=== PATIENT | female | born 1950 | race Caucasian/White ===

== ENCOUNTER → 2018-11-06 | Outpatient (CLI) | payer MEDICARE, OTHER ==
[~2018-11-06] MED LIST: ASPI81EC PO; BETA1 PO; CALGLU500 PO; CAND16 PO; CEFD300 PO; Calcium Glucon500 MG PO; FLAX PO; HYDCHL12.5 PO; LISI5 PO; LOSA25 PO; LOSA50 PO; METF500 PO; MULVITMIND PO; Percocet 5-3251 EACH PO; Prednisone20 MG PO; ROSU10TA PO
== END | disposition home or self-care (01) ==
LOC: PLD 08:47 → LAB SHORT 08:47
DX: D48.5 Neoplasm of uncertain behavior of skin (principal)
CPT/HCPCS: 88305

== ENCOUNTER → 2020-06-09 | Outpatient (CLI) | payer MEDICARE, OTHER | LOC: LAB SHORT 14:54 → LAB 14:54 | DX: C44.722 Squamous cell carcinoma of skin of right lower limb, including hip (principal) | CPT/HCPCS: 88305 ==

== ENCOUNTER → 2021-04-19 | Outpatient (CLI) | payer MEDICARE, OTHER | LOC: LAB 12:26 → LAB SHORT 12:26 | DX: D48.5 Neoplasm of uncertain behavior of skin (principal); L57.0 Actinic keratosis | CPT/HCPCS: 88305 ==

== ENCOUNTER → 2021-09-21 | Outpatient (CLI) | payer MEDICARE, OTHER | END | disposition home or self-care (01) | LOC: LAB SHORT 12:09 | DX: R30.9 Painful micturition, unspecified (principal) | CPT/HCPCS: 87077; 87086; 87186 ==

== ENCOUNTER → 2024-04-13 | Outpatient (CLI) | payer MEDICARE, OTHER | LOC: LAB SHORT 12:01 → LAB 12:01 | DX: R30.0 Dysuria (principal) | CPT/HCPCS: 87077; 87086; 87186 ==

== ENCOUNTER 2025-06-06 20:49 | Inpatient (IN) | payer OTHER, MEDICARE ==
[~2025-06-06] VITALS: Ht 152.4 cm; Wt 54.3 kg
[2025-06-06] MEDS ORDERED: CeFAZolin Sodium 2,000 MG in NS 100 ML IV ONE (21:20)
[2025-06-06] MEDS ORDERED: HYDROmorphone HCl/Pf 1MG SYR IV ONE (21:25)
[2025-06-06] MEDS ORDERED: Diazepam 5 MG / ML 2ML SYR IV ONE (22:10)
[2025-06-06] MEDS ORDERED: FentaNYL Citrate 50 MCG/ML 2 ML Injection IV ONE ×2 (22:35→23:00)
[2025-06-06 22:38] LABS: BASOPHILS ABSOLUTE AUTO 0.06 K/mm3 (0.00-0.23); BASOPHILS PERCENT AUTO 1 % (0-2); EOSINOPHILS ABSOLUTE AUTO 0.00 K/mm3 (0.00-0.68); EOSINOPHILS PERCENT AUTO 0 % (0-6); Hematocrit 36.3 % (33.0-51.0); Hemoglobin 12.5 g/dL (11.5-16.0); IMMATURE GRAN ABSOLUTE AUTO 0.05 K/mm3 (0.00-0.10); IMMATURE GRAN PERCENT AUTO 0 % (0-1); LYMPHOCYTES ABSOLUTE AUTO 1.17 K/mm3 (0.84-5.20); LYMPHOCYTES PERCENT AUTO 9 % (21-46); MONOCYTES ABSOLUTE AUTO 0.65 K/mm3 (0.16-1.47); MONOCYTES PERCENT AUTO 5 % (4-13); Mean Corpuscular HGB Conc 34.4 g/dL (31.5-36.5); Mean Corpuscular Volume 104 fL (80-100); NEUTROPHILS ABSOLUTE AUTO 10.84 K/mm3 (1.96-9.15); NEUTROPHILS PERCENT AUTO 85 % (41-73); NRBC ABSOLUTE 0.00 K/mm3 (0.00-0.02); NRBC Auto 0.0 /100 WBC (0.0-0.2); Platelet Count 265 K/mm3 (150-400); RDW Coefficient Variation 12.7 % (11.7-14.2); RDW Standard Deviation 49.0 fL (35.1-46.3)
[2025-06-06 22:44] LABS: Alanine Aminotransfer (ALT/SGP 17.0 U/L (12-78); Albumin, Blood 3.3 g/dL (3.4-5.0); Albumin/Globulin Ratio 1.1 (0.8-1.8); Anion Gap 15.0 mmol/L (3-11); Aspartate Aminotrans (AST/SGOT 16.0 U/L (12-37); Bilirubin, Total 0.3 mg/dL (0.1-1.0); Blood Urea Nitrogen 12.0 mg/dL (8-24); CO2, Blood 20.0 mmol/L (21-32); Calcium, Blood 8.7 mg/dL (8.5-10.1); Chloride, Blood 102.0 mmol/L (98-108); Creatinine, Blood 0.57 mg/dL (0.40-1.00); Globulin, Blood 3.1 g/dL (2.2-4.0); Glucose, Blood 98.0 mg/dL (70-99); Potassium, Blood 3.6 mmol/L (3.5-5.5); Sodium, Blood 133.0 mmol/L (136-145); Total Protein, Blood 6.4 g/dL (6.4-8.2)
[2025-06-06 22:53] LABS: Prothrombin Time Results 9.8 Sec (9.7-11.5)
[2025-06-06] MEDS ORDERED: FLU VACC TS2025(65UP)/MF59C/PF 45 MCG/0.5 ML SYRINGE IM SCH (22:55)
[2025-06-06] MEDS ORDERED: HYDROmorphone HCl/Pf 1MG SYR IV PRN (22:55)
[2025-06-06] MEDS ORDERED: Naloxone HCl 0.4MG / ML 1ML Vial IV PRN (23:00)
[2025-06-06] MEDS ORDERED: Ondansetron HCl 2 MG / ML 2ML Vial IV PRN (23:00)
[2025-06-07] VITALS (12 sets, daily range): BP systolic 113–165; BP diastolic 76–97
--- NOTE | 2025-06-07 00:05 | NUR ---
ARRIVAL NOTE PT ARRIVED STABLE FROM ER VIA GURNEY WITH A L HUMERUS FX. SPLINT TO L ARM NOTED. SENSATION TO L ARM INTACT, RADIAL PULSE PRESENT, CAP REFILL < 3 SECONDS. PT TRANSFERRED TO HOSPITAL BED AND ORIENTED TO ROOM.
[2025-06-07] MEDS ORDERED: EUTHYROX50 MCG PO (01:11)
[2025-06-07] MEDS ORDERED: ATOR10 PO (01:12)
[2025-06-07] MEDS ORDERED: One Daily Wome0.4 MG PO (01:13)
[2025-06-07] MEDS ORDERED: [UNRECOGNIZED DRUG - OTHER] PO (01:13)
[2025-06-07] MEDS ORDERED: FISH OIL 1,0001 EA10 PO (01:14)
[2025-06-07 05:43] LABS: BASOPHILS ABSOLUTE AUTO 0.04 K/mm3 (0.00-0.23); BASOPHILS PERCENT AUTO 0 % (0-2); EOSINOPHILS ABSOLUTE AUTO 0.00 K/mm3 (0.00-0.68); EOSINOPHILS PERCENT AUTO 0 % (0-6); Hematocrit 36.1 % (33.0-51.0); Hemoglobin 12.3 g/dL (11.5-16.0); IMMATURE GRAN ABSOLUTE AUTO 0.03 K/mm3 (0.00-0.10); IMMATURE GRAN PERCENT AUTO 0 % (0-1); LYMPHOCYTES ABSOLUTE AUTO 1.60 K/mm3 (0.84-5.20); LYMPHOCYTES PERCENT AUTO 17 % (21-46); MONOCYTES ABSOLUTE AUTO 0.80 K/mm3 (0.16-1.47); MONOCYTES PERCENT AUTO 8 % (4-13); Mean Corpuscular HGB Conc 34.1 g/dL (31.5-36.5); Mean Corpuscular Volume 104 fL (80-100); NEUTROPHILS ABSOLUTE AUTO 7.06 K/mm3 (1.96-9.15); NEUTROPHILS PERCENT AUTO 74 % (41-73); NRBC ABSOLUTE 0.00 K/mm3 (0.00-0.02); NRBC Auto 0.0 /100 WBC (0.0-0.2); Platelet Count 248 K/mm3 (150-400); RDW Coefficient Variation 13.0 % (11.7-14.2); RDW Standard Deviation 49.2 fL (35.1-46.3)
--- NOTE | 2025-06-07 06:34 | NUR ---
SHIFT SUMMARY A&O X4. PAIN MANAGED WELL PER EMAR. SPLINT AND BHARAT WRAP TO L ARM. PT NPO @ OOO5 IN ANTICIPATION OF SURGERY TODAY. HCG BATH COMPLETED. CONTINUOUS PULSE OX IN PLACE SPO2 95% ON 2L O2 VIA NC. PT RESTING IN BED, RESPIRATIONS EVEN AND UNLABORED. CALL LIGHT WITHIN REACH.
[2025-06-07 06:37] LABS: Alanine Aminotransfer (ALT/SGP 18.0 U/L (12-78); Albumin, Blood 3.1 g/dL (3.4-5.0); Albumin/Globulin Ratio 1.0 (0.8-1.8); Anion Gap 14.0 mmol/L (3-11); Aspartate Aminotrans (AST/SGOT 17.0 U/L (12-37); Bilirubin, Total 0.5 mg/dL (0.1-1.0); Blood Urea Nitrogen 9.0 mg/dL (8-24); CO2, Blood 20.0 mmol/L (21-32); Calcium, Blood 8.6 mg/dL (8.5-10.1); Chloride, Blood 105.0 mmol/L (98-108); Creatinine, Blood 0.55 mg/dL (0.40-1.00); Globulin, Blood 3.2 g/dL (2.2-4.0); Glucose, Blood 93.0 mg/dL (70-99); Magnesium, Blood 1.6 mg/dL (1.6-2.4); Potassium, Blood 3.8 mmol/L (3.5-5.5); Sodium, Blood 135.0 mmol/L (136-145); Thyroid Stimulating Hormone 1.12 uIU/mL (0.360-4.800); Total Protein, Blood 6.3 g/dL (6.4-8.2)
[2025-06-07] MEDS ORDERED: Bupivacaine 0.5% W/EPI 1:200000 SDV 30 ML Vial ONE (07:48)
[2025-06-07] MEDS ORDERED: CeFAZolin Sodium 2,000 MG in NS 100 ML IV SCH (08:00)
[2025-06-07] MEDS ORDERED: Ondansetron HCl 2 MG / ML 2ML Vial ONE (08:02)
[2025-06-07] MEDS ORDERED: Dexamethasone Sodium Phosphate 4 MG/ML 5ML VIAL ONE (08:02)
[2025-06-07] MEDS ORDERED: Metoclopramide HCl 5MG / ML 2ML Vial ONE (08:02)
[2025-06-07] MEDS ORDERED: FentaNYL Citrate 50 MCG/ML 2 ML Injection ONE ×3 (08:11→09:55)
[2025-06-07] MEDS ORDERED: CeFAZolin Sodium 1000 mg Vial ONE ×2 (08:21→08:24)
[2025-06-07] MEDS ORDERED: Lactobacil 2-S.Thermo-Bifido 1 1 Cap PO SCH (09:00)
[2025-06-07] MEDS ORDERED: Ketorolac Tromethamine 30mg Vial ONE (09:55)
[2025-06-07] MEDS ORDERED: Sugammadex Sodium 200 MG/2ML SDV (100 MG/ML) ONE (10:33)
[2025-06-07] MEDS ORDERED: Albuterol 2.5 MG/3 ML VIAL INH PRN (10:35)
[2025-06-07] MEDS ORDERED: HYDROmorphone HCl/Pf 1MG SYR IV PRN ×2 (10:35)
[2025-06-07] MEDS ORDERED: FentaNYL Citrate 50 MCG/ML 2 ML Injection IV PRN ×2 (10:35→10:40)
[2025-06-07] MEDS ORDERED: Ondansetron HCl 2 MG / ML 2ML Vial IV PRN (10:40)
--- NOTE | 2025-06-07 17:20 | NUR ---
ARRIVAL TO SURG FLOOR TO FLOOR VIA HOSP BED. A&O x4, VSS. L SHOULDER w/AQUACEL & SLING. STATES NO PAIN AT THIS TIME. AWAITING POST OP VOID. SNACKS & DRINKS GIVEN. RESTING IN BED w/CALL LIGHT WITHIN REACH.
--- NOTE | 2025-06-07 18:37 | NUR ---
SHIFT SUMMARY S/P MERLYNE ORIF. A&O x4, VSS. L ARM w/AQUACEL & SLING - C/D/I. PAIN CONTROLLED WELL PER EMAR. VOIDED SUCCESSFULLY. TOLERATING FLUDIS & FOOD WELL. SBA TO BATHROOM FOR VOID. RESTING IN BED w/CALL LIGHT WITHIN REACH.
[2025-06-08 01:17] VITALS: BP 116/67
[2025-06-08 04:30] VITALS: BP 105/65
[2025-06-08 04:47] LABS: BASOPHILS ABSOLUTE AUTO 0.02 K/mm3 (0.00-0.23); BASOPHILS PERCENT AUTO 0 % (0-2); EOSINOPHILS ABSOLUTE AUTO 0.00 K/mm3 (0.00-0.68); EOSINOPHILS PERCENT AUTO 0 % (0-6); Hematocrit 26.9 % (33.0-51.0); Hemoglobin 9.3 g/dL (11.5-16.0); IMMATURE GRAN ABSOLUTE AUTO 0.03 K/mm3 (0.00-0.10); IMMATURE GRAN PERCENT AUTO 0 % (0-1); LYMPHOCYTES ABSOLUTE AUTO 1.01 K/mm3 (0.84-5.20); LYMPHOCYTES PERCENT AUTO 14 % (21-46); MONOCYTES ABSOLUTE AUTO 0.73 K/mm3 (0.16-1.47); MONOCYTES PERCENT AUTO 10 % (4-13); Mean Corpuscular HGB Conc 34.6 g/dL (31.5-36.5); Mean Corpuscular Volume 103 fL (80-100); NEUTROPHILS ABSOLUTE AUTO 5.71 K/mm3 (1.96-9.15); NEUTROPHILS PERCENT AUTO 76 % (41-73); NRBC ABSOLUTE 0.00 K/mm3 (0.00-0.02); NRBC Auto 0.0 /100 WBC (0.0-0.2); Platelet Count 219 K/mm3 (150-400); RDW Coefficient Variation 13.0 % (11.7-14.2); RDW Standard Deviation 48.9 fL (35.1-46.3)
[2025-06-08 05:08] LABS: Anion Gap 10.0 mmol/L (3-11); Blood Urea Nitrogen 13.0 mg/dL (8-24); CO2, Blood 24.0 mmol/L (21-32); Calcium, Blood 7.9 mg/dL (8.5-10.1); Chloride, Blood 104.0 mmol/L (98-108); Creatinine, Blood 0.67 mg/dL (0.40-1.00); Glucose, Blood 119.0 mg/dL (70-99); Potassium, Blood 4.0 mmol/L (3.5-5.5); Sodium, Blood 134.0 mmol/L (136-145)
--- NOTE | 2025-06-08 06:09 | NUR ---
INSTRUMENTATION AND CONTROLS TECHNICIAN SUMMARY PT IS POD 0 FOR L ARM ORIF. PT ABLE TO WIGGLE FINGERS AND HAS GOOD PULSES AND SENSATION TO LUE. MINIMAL PAIN THROUGH THE NIGHT, ONLY REQUIRING TYLENOL ONCE. PT HAS SLEPT WELL AND HAS NO REAL COMPLAINTS. SLING IN PLACE TO L ARM, PT EDUCATED ON PROPER POSITIONING. PT HAS BEEN UP TO BATHROOM MULTIPLE TIMES WITH A STANDBY ASSIST. NIKOSS, OUSMANE.
[2025-06-08 07:24] VITALS: BP 106/76
[2025-06-08 08:16] LABS: Ferritin, Serum 238.0 ng/mL (8-252); Total Iron Binding Capacity 192.0 ug/dL (250-450)
[2025-06-08] MEDS ORDERED: NS 250 ML IV PRN (09:50)
[2025-06-08] MEDS ORDERED: Acetaminophen650 M1 PO (14:49)
[2025-06-08] MEDS ORDERED: PROBIOTIC WOME1 EACH PO (14:50)
[2025-06-08] MEDS ORDERED: OXYC5 PO (14:50)
--- NOTE | 2025-06-08 15:16 | NUR ---
DISCHARGE NOTE: PATIENT ALERT AND ORIENTED, STABLE AT DC. PAIN WELL MANAGED WITH OXYCODONE. IV OUT. DISCHARGE INFORMATION GONE OVER WITH PATIENT AND PATIENT'S . INFORMATION ABOUT FOLLOW UP APPOINTMENTS, AFTER SURGERY CARE, PAIN MANAGEMENT AND HOME HEALTH GONE OVER WITH PATIENT AND PATIENT'S . THEY VERBALIZED UNDERSTANDING. PATIENT LEFT WITH ALL BELONGNINGS. LEFT VIA WHEELCHAIR WITH LAVERNE BAEZ TO 'S PRIVATE VEHICLE.
== END 2025-06-08 15:20 | disposition home health service (06) | DRG 494 ==
LOC: ER 20:49 → SURS 22:52
PROVIDERS: Orthopaedic Surgery; Student in an Organized Health Care Education/Training Program; ADMIT Student in an Organized Health Care Education/Training Program
PROC: 0PSGXZZ Reposition Left Humeral Shaft, External Approach (ICD-10-PCS; 2025-06-06)
PROC: 0PSG04Z Reposition Left Humeral Shaft with Internal Fixation Device, Open Approach (ICD-10-PCS; principal; 2025-06-07 07:00)
DX: S42.33 Oblique fracture of shaft of humerus (principal); S42.342B Displaced spiral fracture of shaft of humerus, left arm, initial encounter for open fracture; W01.0XXA Fall on same level from slipping, tripping and stumbling without subsequent striking against object, initial encounter; Y92.89 Other specified places as the place of occurrence of the external cause; E53.8 Deficiency of other specified B group vitamins; E78.5 Hyperlipidemia, unspecified; I10 Essential (primary) hypertension; E03.9 Hypothyroidism, unspecified; R73.03 Prediabetes; M81.0 Age-related osteoporosis without current pathological fracture; Z88.0 Allergy status to penicillin; Z79.890 Hormone replacement therapy; Z79.84 Long term (current) use of oral hypoglycemic drugs
CPT/HCPCS: 29105; 36415; 73060; 80048; 80053; 82306; 82607; 82728; 82746; 83036; 83540; 83550; 83735; 84443; 85025; 85610; 85730; 86850; 86900; 86901; 90471; 90715; 94760; 96365-59; 96375-59; 97116; 97162; 97530; 99285-25; A6590; A9270; C1713; J0690; J1100; J1171; J1885; J2405; J2704; J2765; J3010; J3360; J7120